=== PATIENT | male | born 1955 | race Caucasian/White ===

== ENCOUNTER 2020-09-20 12:17 | Emergency (ER) | payer OTHER, SELFPAY ==
[2020-09-20] VITALS (13 sets, daily range): BP systolic 153–211; BP diastolic 70–95; PULSE 40–50; RESP 13–20; TEMP 36.2; O2SAT 97–100
--- NOTE | 2020-09-20 12:44 | ECG_ITS ---
Measurements Intervals [place] Rate: 41 P: 37 MS: 135 QRS: 79 QRSD: 90 T: 65 QT: 467 QTc: 387 Interpretive Statements SINUS BRADYCARDIA VOLTAGE CRITERIA FOR LVH ABNORMAL ECG Electronically Signed On 09-21-2020 15:41:36 BRANCH MANAGER by Chato White D.O.
--- NOTE | 2020-09-20 12:52 | ED.GENADULT ---
HPI - General Adult General Chief complaint: Headache Stated complaint: headache, high BP Source: patient Mode of arrival: ambulatory Limitations: no limitations History of Present Illness HPI narrative: Martell presented to the ER with an elevated BP and a headache. He was recently seen at [facility] for the same thing and reportedly had a negative workup there. He was started on lisinopril 15mg days ago and has been taking it. However, his BP was still 200 systolic at home. Today he started having a headache that felt like pressure in his head. He denies CP, SOB, confusion and anuria. Related Data Home Medications Medication Instructions Recorded Confirmed fluticasone propionate 2 spray INTRANASAL DAILY 09/20/20 09/20/20 lisinopril 15 mg PO DAILY 09/20/20 09/20/20 loratadine [Claritin] 10 mg PO DAILY 09/20/20 09/20/20 Allergies Allergy/AdvReac Type Severity Reaction Status Date / Time No Known Allergies Allergy Verified 09/20/20 12:45 Review of Systems Constitutional: Constitutional: Reports no additional constitutional complaints Eyes: Eyes: Reports no additional eye complaints ENT: Reports system reviewed and no additional complaints, except as documented Cardiovascular: Cardiovascular: Reports as per HPI Respiratory: Respiratory: Reports no additional respiratory complaints Gastrointestinal: Gastrointestinal: Reports no additional gastrointestinal complaints Genitourinary: Genitourinary: Reports no additional male genitourinary complaints Musculoskeletal: Musculoskeletal: Reports no additional musculoskeletal complaints Integumentary/Breasts: Skin/Breast: Reports system reviewed and no additional complaints, except as docu Neurologic: Reports as per HPI Psychiatric: Psychiatric: Reports no additional psychiatric complaints Endocrine: Endocrine: Reports no additional endocrine complaints Hematologic/Lymphatic: Hematologic/Lymphatic: Reports no additional hematologic/lymphatic complaints Allergic/Immunologic: Allergic/Immunologic: Reports no additional allergic/immunologic complaints [facility] Social History Social History Smoking status: Never smoker Exam Const: General: healthy appearing, no acute distress and alert; No confusion Orientation/consciousness: patient oriented x3 Limitations: No altered mental status HENMT: Other: normocephalic, atraumatic Eyes: Conjunctivae: conjunctivae normal Pupils: Equal, round and reactive pupils present Neck: Neck: normal visual inspection Chest: Chest palpation & inspection: normal inspection of the chest Resp: Effort & Inspection: normal respiratory effort Auscultation: clear to auscultation bilaterally Cardio: Rate: regular rate Rhythm: regular rhythm Heart sounds: no murmurs GI: GI Palp: Yes Soft to palpation and No Tenderness to palpation present (GI) Skin: General skin exam: normal color Rashes: no rashes Neuro: General: patient oriented x3, moves all extremities, no focal motor deficits and CN's II-XI intact bilaterally Speech: normal speech Gait exam (Neuro): Normal gait present Extrem: General: normal to inspection Psych: Mental Status: mental status grossly normal Course Course Emergency Course: Martell was evaluated. He refused pain meds for the headache. He was given 10mg of amlodipine. EKG and BMP were ordered. EKG: NSR with a rate of 41, normal axis, LVH and No ST elevation/depression Labs were largely unremarkable. 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 A script was sent for amlodipine in addition to the lisinopril. Vital Signs Vital signs: Vital Signs Temperature 97.2 F L 09/20/20 12:25 Pulse Rate 45 L 09/20/20 12:25 Respiratory Rate 15 09/20/20 12:25 Blood Pressure 211/90 H 09/20/20 12:25 Pulse Oximetry 99 09/20/20 12:25 Temperature 97.2 F L 09/02
[2020-09-20 13:20] LABS: BNP 82 pg/mL (0-100)
[2020-09-20 13:41] LABS: Anion Gap 7 mmol/L (8-16); Blood Urea Nitrogen 12 mg/dL (7-18); Calcium 9.3 mg/dL (8.5-10.1); Carbon Dioxide 28 mmol/L (21-32); Chloride 102 mmol/L (98-108); Estimated CRCL calculation 58 ml/min; Estimated Glomerular Filt Rate > 60; Glucose 105 mg/dL (70-99); Osmolality Calculated 283 mOsm/kg (285-295); Potassium 3.7 mmol/L (3.5-5.1); Sodium 137 mmol/L (136-145)
== END 2020-09-20 14:06 | disposition home or self-care (01) ==
PROVIDERS: Emergency Provider Family Medicine
DX: I16.0 Hypertensive urgency (principal)
CPT/HCPCS: 36415; 80048; 83880; 93005; 99283

== ENCOUNTER → 2021-01-31 02:06 | Outpatient (CLI) | payer OTHER, SELFPAY ==
[2021-01-31 19:16] LABS: SARS-CoV-2 RNA PCR Negative
== END ==
PROVIDERS: PCP Family Medicine; Visit Provider Internal Medicine Gastroenterology
DX: Z01.812 Encounter for preprocedural laboratory examination (principal); Z20.822 Contact with and (suspected) exposure to COVID-19
CPT/HCPCS: C9803; U0003; U0005

== ENCOUNTER 2021-02-03 01:17 | Day surgery (SDC) | payer OTHER, SELFPAY ==
[2021-01-27 13:47] VITALS: BMI 21.7
[2021-02-03 08:21] VITALS: BP 191/83; PULSE 55; RESP 20; TEMP 36.4; O2SAT 100; BMI 21.4
[2021-02-03] MEDS: LACTATED RINGERS 1,000 ML 150 ML IV CONT (08:35)
--- NOTE | 2021-02-03 08:38 | WPDANESEPPF ---
Anes - Initial Pre Proc Eval Procedure: Operation Date: 02/03/21 09:30 Proposed Procedures p Colonoscopy - Danny Aguilar MD Date/Time: 02/03/21 08:38 Surgeon: Danny Aguilar MD Pre Op Diagnosis: positive cologuard Patient Data Age: 65 Gender: M Height: 1.65 m Weight: 58.4 kg Last Vital Signs Temp 36.4 C 02/03/21 08:21 Pulse 55 L 02/03/21 08:21 Resp 20 02/03/21 08:21 BP 191/83 H 02/03/21 08:21 Pulse Ox 100 02/03/21 08:21 Allergies Allergy/AdvReac Type Severity Reaction Status Date / Time No Known Allergies Allergy Verified 01/06/21 06:54 Home Medications Medication Instructions Recorded Confirmed Type lisinopril 10 mg tablet 10 mg PO DAILY #90 tablet 01/06/21 02/03/21 Rx Patient hx anesthesia problems: none Family hx anesthesia problems: none PMFSH Past Medical History Medical History (Updated 02/02/21 @ 10:45 by Remi Bah DO) Bradycardia Hypertension Surgical History Surgical History (Updated 02/02/21 @ 10:45 by Remi Bah DO) History of appendectomy Social History Social History (Updated 02/03/21 @ 08:38 by Remi Bah DO) Smoking status: Never smoker Drinks per week: 50 Alcohol use details: 7 beers/daily Substance use type: does not use Living arrangements: with family Gender identity (if verbalized by the patient): Male Spiritual care concerns: No Anes - Eval Final PreProcedure Day of Procedure 02/03/21 08:38 Patient weight: normal Heart: regular rate and rhythm Lungs: clear to auscultation and normal air movement Airway: Mallampati scale class II Neurological: alert and oriented Last oral intake: >/= 8 hours ASA classification: III Emergent: no Anesthetic plan: proceed Anesthesia type and monitoring: general GIVS and standard monitoring Informed Consent: The patient's anesthetic plan and its attendant risks and benefits were discussed with the patient/family/POA. Questions were solicited and answers provided to the satisfaction of the patient/family/POA.
[2021-02-03 09:06] VITALS: BP 126/74; PULSE 65; RESP 17; O2SAT 98
[2021-02-03 09:16] VITALS: BP 118/70; PULSE 55; RESP 17; O2SAT 97
[2021-02-03 09:26] VITALS: BP 125/78; PULSE 47; RESP 19; O2SAT 98
--- NOTE | 2021-02-05 13:29 | PM.HPGS ---
History of Present Illness History of Present Illness Consent: Risks, benefits, and alternatives have been discussed and questions answered. Patient agrees to proceed with procedure. Chief complaint: positive cologuard Narrative: Martell Huffman is a 65 year old male referred for colon cancer screening. He recently did a cold guard test which was positive Review of Systems Review of Systems: All systems reviewed & are unremarkable except as noted in HPI and below PMFSH Past Medical History Medical History Bradycardia Hypertension Surgical History Surgical History History of appendectomy Social History Social History Smoking status: Never smoker Drinks per week: 50 Alcohol use details: 7 beers/daily Substance use type: does not use Living arrangements: with family Gender identity (if verbalized by the patient): Male Spiritual care concerns: No Meds Home Medications and Allergies Home Medications Medication Instructions Recorded Confirmed Type lisinopril 10 mg tablet 10 mg PO DAILY #90 tablet 01/06/21 02/03/21 Rx Allergies Allergy/AdvReac Type Severity Reaction Status Date / Time No Known Allergies Allergy Verified 01/06/21 06:54 Exam Const: General: alert Orientation/consciousness: patient oriented x3 Resp: Auscultation: clear to auscultation bilaterally Cardio: Rhythm: regular rhythm GI: GI Palp: Yes Soft to palpation and No Tenderness to palpation present (GI) Neuro: General: patient oriented x3 Assessment and Plan Assessment and plan (1) Positive colorectal cancer screening using Cologuard test: Code(s): R19.5 - Other fecal abnormalities Status: Acute Assessment and Plan: Colonoscopy with possible biopsy or polypectomy or cautery or injection of substances.
== END 2021-02-03 09:30 | disposition home or self-care (01) ==
PROVIDERS: PCP Family Medicine; Visit Provider Internal Medicine Gastroenterology
PROC: 0DJD8ZZ Inspection of Lower Intestinal Tract, Via Natural or Artificial Opening Endoscopic (ICD-10-PCS; CPT 45378; principal; 2021-02-03 09:30)
DX: Z12.11 Encounter for screening for malignant neoplasm of colon (principal); K62.1 Rectal polyp; R19.5 Other fecal abnormalities; I10 Essential (primary) hypertension; R00.1 Bradycardia, unspecified
CPT/HCPCS: 45380; 88305; C9803; J2704; J7120; U0003; U0005

== ENCOUNTER 2021-03-23 13:59 | Outpatient (RCR) | payer OTHER, SELFPAY ==
--- NOTE | 2021-03-23 15:09 | PTOPEVAL ---
Thank you for referring Martell Huffman to [facility].? The patient is scheduled to be seen for therapy? __2__x/week for 8 visits. Please review, sign, date and return this plan of care RANDY. I agree with and certify that the following plan of care is medically necessary. Referring Physician Date Admitting Provider: Attending Provider: Rajeev Ramachandran DO Referring Provider: *PT Outpatient Evaluation Start: 03/23/21 14:05 Freq: Status: Active Protocol: Document 03/23/21 14:05 ROSMERY (Rec: 03/23/21 15:07 ROSMERY [id number]) Therapy Assessment Status Assessment Status Assessment Status Evaluation Outpatient Past Medical History Neurological History Hx Neurological Disorders No Significant History Cardiovascular History Hx Hypertension Yes Hx Other Cardiac Disorders Yes: bradycardia (50) Respiratory History Hx Respiratory Disorders No Significant History Gastrointestinal History Hx Appendectomy Yes Genitourinary History Hx Genitourinary Disorders No Significant History Musculoskeletal History Hx Musculoskeletal Disorders No Significant History Hematological History Hx Hematological Disorders No Significant History Endocrine History Hx Endocrine Disorders No Significant History HEENT History Hx HEENT Disorders No Significant History Integumentary History Hx Skin Disorders No Significant History Reproductive History Hx Reproductive Disorders No Significant History Psychosocial History Hx Psychiatric Disorders No Significant History Pain History History of Any Previous or Ongoing No Significant History Instance of Pain Anesthesia History Hx Anesthesia Reactions No Significant History Evaluation Information Problem Diagnosis left side sciatica, low back pain Subjective Information Pt. reports that he developed Query Text:As Reported By Patient/ pain in the morning on January . He described pain from the back down the left leg. He reports that he is a runner and avoided running for 9-10 days. He reports that he returned to running but states that he noticed his left foot slapping the ground. He reports that he enjoys running and continues to try to run, but states that he is less efficient. He reports that his goal is to normalize his gait and return to running no
--- NOTE | 2021-06-02 06:44 | PCPTNOTE ---
Mr. Huffman attended a total of 6 treatment sessions from 03/23/21 to 04/15/21. He has failed to return to the clinic and will be discharged from our care. Refer to pt. last Rx note for discharge status. Trey Herman, MPT
== END 2021-04-15 09:38 | disposition home or self-care (01) ==
LOC: CHSPT 13:59
PROVIDERS: PCP Family Medicine; Visit Provider Family Medicine
DX: M54.42 Lumbago with sciatica, left side (principal)
CPT/HCPCS: 97014; 97110; 97161; G0283

== ENCOUNTER 2023-06-15 12:45 | Outpatient (CLI) | payer OTHER, MEDICARE, SELFPAY ==
--- NOTE | ~2023-06-15 | XR_ITS ---
EXAMINATION: XR lumbar spine 2-3V DATE: 06/15/2023 12:59 INDICATION: Lumbar radiculopathy TECHNIQUE: Anteroposterior and lateral views of the lumbar spine, and cone-down lateral view of the l umbosacral junction were obtained. COMPARISON: None. FINDINGS: There is moderate loss of intervertebral disc space height at L5-S1. The vertebral body hei ghts are maintained. There is no fracture. Small degenerative osteophytes project from the anterior e ndplates of multiple vertebral bodies. There is moderate facet joint osteoarthritis of the lower lumb ar spine. IMPRESSION: 1. Moderate lumbar spondylosis without acute findings. Reviewed, dictated and finalized at location F.
== END 2023-06-15 12:46 | disposition home or self-care (01) ==
LOC: CHSIMG 12:49
PROVIDERS: PCP Family Medicine; Visit Provider Family Medicine
DX: M54.16 Radiculopathy, lumbar region (principal); M43.06 Spondylolysis, lumbar region
CPT/HCPCS: 72100

== ENCOUNTER 2023-06-21 13:00 | Outpatient (RCR) | payer OTHER, MEDICARE, SELFPAY ==
--- NOTE | 2023-06-21 14:50 | PTOPEVAL1 ---
Assessment and note entered by Ale Coelho, PT Evaluation Information Assessment Status Evaluation Diagnosis Lumbar Radiculopathy Subjective Information Martell Huffman reports he was shoveling [place] on 06/08 and he started having left lower back and leg pain. He notes he has constant low back pain and left leg pain changes from his thigh to his knee and occasionally in his calf. He notes his left thigh muscle will get really tight and he has trouble walking. He also has numbness in his left leg along the thigh and inner calf. He notes that pain limits his ability to walk for more than 1/4 mile or stand for more than 10 minutes. 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 He has tried using ibuprofen, tylenol, aleve, sleeping medication, and oxycodone but none of it seems to help. He reports that he has tried taking all that medication at once and still did not get pain relief. He is limited to sleeping 1.5 hours or less at one time. Reported Pain Level Pain Score 7: Self Report Assessment PT Clinical Summary Martell Huffman presents with left low back pain and LE radiculopathy following an injury sustained while shoveling [place] [employer] on 06/08/23. 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 He is currently not working under [facility]. He objectively demonstrates tenderness on the left quadratus lumborum muscle and sciatic notch, decreased and painful lumbar AROM, decreased trunk extension strength, decreased left > right hip strength, poor flexibility in bilateral quadriceps and hip flexors, and positive special tests indicating lumbar nerve root irritation. He will benefit from skilled PT to address these limitations. Plan of Care Interventions Electrical Stimulation,Hot Pack/Cold Pack,Manual Therapy,Mechanical Traction,Neuro Re-education, Patient/Caregiver Educati,Therapeutic Activities, Therapeutic Exercise PT Services Indicated Yes Treatment Frequency and 3 times a week for 9 visits Duration These treatments will address the objective and functional deficits as defined above. The patient will be advanced safely and appropriately in order for the patient to progress towards his/her prior level of function. Additional exercises will
--- NOTE | 2023-06-21 14:50 | OPREHPOC ---
Outpatient Therapy Plan of Care This is a Multidisciplinary Plan of Care that may contain components documented by all disciplines (PT, OT, and ST.) PT Problem 1 PT Problem #1 Knowledge Deficit PT Goal 1 Goal The patient will be independent in a home exercise program to continue after discharge from formal PT. Target Visit 9 PT Problem 2 PT Problem #2 Pain PT Goal 1 Goal The patient will report no greater than 3/10 left low back and LE pain with daily activities. Target Visit 9 PT Problem 3 PT Problem #3 Impaired Functional Mobil PT Goal 1 Goal The patient will score 30% or less on the Back Index indicating less perceived disability with daily activities. Target Visit 9 PT Problem 4 PT Problem #4 Impaired Flexibility PT Goal 1 Goal Pt to improve bilateral quadriceps and hip flexor flexibility to minimal to decrease stress on the lumbar spine. 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 Target Visit 9
--- NOTE | 2023-07-08 17:22 | OPREHPOC ---
Outpatient Therapy Plan of Care This is a Multidisciplinary Plan of Care that may contain components documented by all disciplines (PT, OT, and ST.) PT Problem 1 PT Problem #1 Knowledge Deficit PT Goal 1 Goal The patient will be independent in a home exercise program to continue after discharge from formal PT. Target Visit 9 Progress Met PT Problem 2 PT Problem #2 Pain PT Goal 1 Goal The patient will report no greater than 3/10 left low back and LE pain with daily activities. Target Visit 9 Progress Not Met PT Problem 3 PT Problem #3 Impaired Functional Mobil PT Goal 1 Goal The patient will score 30% or less on the Back Index indicating less perceived disability with daily activities. Target Visit 9 Progress Not Met PT Problem 4 PT Problem #4 Impaired Flexibility PT Goal 1 Goal Pt to improve bilateral quadriceps and hip flexor flexibility to minimal to decrease stress on the lumbar spine. 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 Target Visit 9 Progress Met
--- NOTE | 2023-07-08 17:22 | PTOPDC ---
Assessment and note entered by Pili Alas DPTj Evaluation Information Assessment Status Re-evaluation Diagnosis Lumbar Radiculopathy Subjective Information Patient reports he does not feel like his pain has improved at all since start of PT. Patient reports that he is unable to sleep at night due to increased pain levels. He reports he can stand longer without onset of pain. He reports he went back to work yesterday and was able to make it through 8 hours of his shift before his pain onset . He reports he would like to make today his last day of PT Reported Pain Level Pain Score 3: Self Report Assessment PT Clinical Summary Mr Huffman has been seen for 9 visits with minimal improvement. He reports he continues to have pain when trying to sleep and is waking up multiple times per night. He reports he has been able to stand for longer periods of time but is still limited due to pain. He demonstrates continued decreased LE strength and flexibility. He reports independence with HEP and will be discharged at this time. Plan of Care PT Services Indicated No
== END 2023-07-08 17:24 | disposition home or self-care (01) ==
LOC: CHSPT 13:00
PROVIDERS: PCP Family Medicine; Visit Provider Family Medicine
DX: M54.16 Radiculopathy, lumbar region (principal)
CPT/HCPCS: 97012; 97014; 97110; 97140; 97150; 97161; G0283